=== PATIENT | female | born 1960 ===

== ENCOUNTER 2022-02-26 05:45 | Day surgery (SDC) | payer OTHER ==
[~2022-02-26] VITALS: Ht 157.5 cm; Wt 65.8 kg
[~2022-02-26 05:45] MED LIST: ACID REDUCER20 M1 PO; OMEGA 3 1,0001 EACH PO; RESTORIL30 M1 PO; ZESTRIL20 MG PO; [UNRECOGNIZED DRUG - OTHER] PO
== END 2022-02-26 12:50 | disposition home or self-care (01) ==
LOC: CIR.AMB 05:45
PROVIDERS: ATTEND Colon & Rectal Surgery
DX: K60.5 Anorectal fistula (principal); R15.9 Full incontinence of feces; Z20.822 Contact with and (suspected) exposure to COVID-19; K64.1 Second degree hemorrhoids; I10 Essential (primary) hypertension; E78.5 Hyperlipidemia, unspecified; Z86.16 Personal history of COVID-19; E03.9 Hypothyroidism, unspecified